=== PATIENT | female | born 1995 | race Caucasian/White ===

== ENCOUNTER 2016-08-05 22:20 | Emergency (ER) | payer MEDICAID ==
--- NOTE | 2016-08-05 22:24 | ED Physician Chart ---
Chief Complaint/HPI - Patient Information Date Seen:: 08/05/16 Time Seen:: 22:24 Chief Complaint:: abdominal pain History of Present Illness:: 21-year-old female with recurrent abdominal pain and vomiting, complains of acute, constant, worsening, severe, 10 out of 10, nonradiating, abdominal pain that started this afternoon. Has some slight associated nausea but no vomiting. Allergies:: Allergies Allergy/AdvReac Type Severity Reaction Status Date / Time No Known Allergies Allergy Verified 02/27/16 10:08 Historian:: Patient Review:: Nurse's Note Reviewed Review of Systems - Review of Systems Other: Complete system review otherwise unremarkable except as noted in HPI. Past Medical History - Past Medical History Past Medical History: Other (cyclic vomiting) Family History: None Social History: Non Smoker, No Alcohol, No Drug Use, Employed Surgical History: None Psychiatricy History: None Medication: None Family Medical History - Family Member Mother History Unknown: Yes Living Status: Still Living Hx Family Cancer: Yes Hx Family Coronary Artery Disease: No Hx Family Congestive Heart Failure: No Hx Family Hypertension: No Physical Exam - Physical Examination Other:: INITIAL VITAL SIGNS: Reviewed by me GENERAL: Alert and interactive. Moderate distress due to pain. HEAD: Head is normocephalic and atraumatic EYES: EOMI. . No scleral icterus. No conjunctival injection ENT: Moist mucous membranes. NECK: Supple. No masses. Full range of motion RESPIRATORY: No tachypnea. Clear breath sounds bilaterally. No wheezing, rales, or rhonchi CV: Regular rate and rhythm. No murmurs, rubs, or gallops ABDOMEN: Soft, non-distended, non-tender. No guarding. No rebound. No masses. EXTREMITIES: No deformity. No cyanosis. No edema. SKIN: Warm and dry. No obvious rashes. NEUROLOGIC: Alert and oriented. Face is symmetric. Speech is normal. Moves all extremities equally. Motor and sensory distally intact. Labs/Radiology/EKG Results - Lab Results Results: Lab Results 08/05/16 08/05/16 08/05/16 Range/Units 22:40 22:40 22:40 WBC 7.9 (4.8-10.8) Th/cmm RBC 5.07 (3.80-5.10) Mil/cmm Hgb 14.9 (11.7-15.5) gm/dL Hct 44.0 (35.0-45.0) % MCV 86.7 (81-100) fl MCH 29.3 (27.0-31.0) pg MCHC Differential 33.7 (28.0-36.0) pg RDW 12.2 (11.5-20.0) % Plt Count 253 (150-400) Th/cmm MPV 9.5 fl Neutrophils % 73.6 (40.0-80.0) % Lymphocytes % 10.8 L (20.0-50.0) % Monocytes % 10.6 H (2.0-10.0) % Eosinophils % 0.5 (0.0-5.0) % Basophils % 4.5 H (0.0-2.0) % Sodium 130 L (136-145) mEq/L Potassium 3.3 L (3.5-5.1) mEq/L Chloride 100 (98-107) mEq/L Carbon Dioxide 23.2 (21.0-31.0) mEq/L Anion Gap 10.1 (7.0-16.0) BUN 9 (7-25) mg/dL Creatinine 1.1 (0.6-1.2) mg/dL Est GFR ( Amer) > 60.0 (>90) ml/min Est GFR (Non-Af Amer) > 60.0 ml/min BUN/Creatinine Ratio 8.2 Glucose 120 H (70-105) mg/dL Calcium 9.8 (8.6-10.3) mg/dL Total Bilirubin 1.3 H (0.3-1.0) mg/dL AST 18 (13-39) U/L ALT 15 (7-52) U/L Alkaline Phosphatase 47 (34-104) U/L Total Protein 7.5 (6.0-8.3) gm/dL Albumin 4.5 (3.7-5.3) gm/dL Globulin 3.0 gm/dL Albumin/Globulin Ratio 1.5 (1.0-1.8) Amylase 56 (29-103) U/L Lipase 9 L (11-82) U/L Urine Test NEGATIVE - Radiology Results Results: CT abdomen and pelvis without contrast preliminary report per radiology NAD ED Septic Shock - . Is Septic Shock (SBP<90, OR Lactate>4 mmol\L) present?: No Reassessment (Disposition) - Reassessment Reassessment:: The patient's blood pressure was elevated (>120/80) but appears stable without evidence of hypertensive emergency or urgency. The patient was counseled about the risks hypertension urged to pursue outpatient monitoring and therapy within a week with her primary care physician. Patient has recurrent abdominal pain with nausea and vomiting. She received IV Toradol, normal saline, Compazine, Decadron. Symptoms improved. CT and labs essentially unremarkable. Some hypokalemia. Recommended testing which foods. Follow-up PCP 1-2 days. Return to ER precautions given. Patient understands and agrees the plan. Reassessment Condition:: Improved - Diagnosis Diagnosis:: Abdominal pain, unspecified Hypokalemia Pre-hypertension - Aftercare/Follow up Instructions Aftercare/Follow-Up Instructions:: Counseled pt regarding lab results/diagnosis & need follow up, Refer to Discharge Instructions - Patient Disposition Discharge/Transfer:: Home Time:: 00:30 Condition at Disposition:: Improved ED Discharge Plan - Patient Disposition Admit/Discharge/Transfer: PT DISCHARGED HOME Condition at Disposition: Improved Instructions: Abdominal Pain, [id number]
[2016-08-05] MEDS ORDERED: Sodium Chloride 0.9% 1,000 ML IV ONE ×2 (22:25→22:27)
[2016-08-05] MEDS ORDERED: Dexamethasone Sodium Phos 4 mg/mL Vial IVP STA (22:26)
[2016-08-05] MEDS ORDERED: Prochlorperazine 5 mg/mL 2mL Vial IVP STA (22:27)
[2016-08-05 22:49] LABS: % BASOPHILS 4.5 % (0.0-2.0); % EOSINOPHILS 0.5 % (0.0-5.0); % LYMPHOCYTES 10.8 % (20.0-50.0); % MONOCYTES 10.6 % (2.0-10.0); % NEUTROPHILS 73.6 % (40.0-80.0); HEMOGLOBIN 14.9 gm/dL (11.7-15.5); MEAN CELL VOLUME 86.7 fl (81-100); MEAN CORPUSCULAR HEMOGLOBIN 29.3 pg (27.0-31.0); MEAN CORPUSCULAR HGB CONC 33.7 pg (28.0-36.0); MEAN PLATELET VOLUME 9.5 fl; NEUTROPHILE ABSOLUTE 5.8 Th/cmm (1.8-8.0); PLATELET COUNT 253 Th/cmm (150-400); RED BLOOD COUNT 5.07 Mil/cmm (3.80-5.10); RED CELL DISTRIBUTION WIDTH 12.2 % (11.5-20.0); WHITE BLOOD COUNT 7.9 Th/cmm (4.8-10.8)
[2016-08-05] MEDS ORDERED: Dexamethasone Sodium Phos 10 mg/mL PF Vial ONE (22:58)
[2016-08-05] MEDS ORDERED: Prochlorperazine 5 mg/mL 2mL Vial ONE (22:59)
[2016-08-05 23:04] LABS: ALB/GLOB RATIO 1.5 (1.0-1.8); ALKALINE PHOSPHATASE 47 U/L (34-104); AMYLASE SERUM 56 U/L (29-103); ANION GAP 10.1 (7.0-16.0); BILIRUBIN,TOTAL 1.3 mg/dL (0.3-1.0); BUN - UREA NITROGEN 9 mg/dL (7-25); BUN/CREATININE RATIO 8.2; CALCIUM SERUM 9.8 mg/dL (8.6-10.3); CARBON DIOXIDE 23.2 mEq/L (21.0-31.0); CHLORIDE 100 mEq/L (98-107); CREATININE - SERUM 1.1 mg/dL (0.6-1.2); GLUCOSE 120 mg/dL (70-105); LIPASE 9 U/L (11-82); POTASSIUM SERUM 3.3 mEq/L (3.5-5.1); SGOT 18 U/L (13-39); SGPT/ALT 15 U/L (7-52); SODIUM SERUM 130 mEq/L (136-145)
[2016-08-05 23:27] LABS: URINE COLOR YELLOW
[2016-08-05 23:28] LABS: URINE BILIRUBIN NEGATIVE (NEGATIVE); URINE BLOOD NEGATIVE (NEGATIVE); URINE GLUCOSE (UA) NEGATIVE (NEGATIVE); URINE KETONE NEGATIVE (NEGATIVE); URINE PH 7.5; URINE PROTEIN TRACE mg/dL (NEGATIVE)
[2016-08-05 23:29] LABS: URINE BACTERIA FEW /hpf (NONE SEEN); URINE EPITHELIAL CELLS FEW /lpf (FEW); URINE RBC 0-1 /hpf (0-5)
--- NOTE | 2016-08-06 11:51 | Diagnostic Imaging Report ---
CT abdomen and pelvis without intravenous contrast Indication: Abdominal pain Comparison: CT abdomen and pelvis on 05/28/2016 Technique: Axial images were obtained from the lung bases to the bilateral proximal femurs without IV contrast. Coronal reconstructions were made. total DLP: 439, CTDI9.3 FINDINGS: The lung bases demonstrate minimal atelectatic changes. Assessment of the solid organs is limited due to lack of IV contrast. No evidence of focal hepatic lesions. No radiopaque gallstones identified. No focal splenic lesions. No focal pancreatic lesions. Limited evaluation of adrenal gland demonstrates no evidence of focal lesions. There may be punctate 1 mm right renal calculus (image 29, series 2). No hydronephrosis. Trace free fluid is seen within the pelvis. Moderate stool is seen throughout the colon without evidence of obstruction. The appendix is unremarkable. Degenerative changes of the SI joints are noted. IMPRESSION: No evidence of bowel obstruction. No evidence of acute appendicitis. Trace free fluid in the pelvis, nonspecific Questionable 1 mm right renal stone. No hydronephrosis.
== END 2016-08-06 00:33 | disposition home or self-care (01) ==
LOC: ER 22:20
DX: R10.9 Unspecified abdominal pain (principal); E87.6 Hypokalemia
CPT/HCPCS: 74176; 36415; 85025; 81001; 82150; 81025; 83690; 80053; 99285; 96374; 96375; J1885; J2405; J0780; J7070

== ENCOUNTER 2016-12-02 11:42 | Emergency (ER) | payer MEDICAID ==
--- NOTE | 2016-12-02 12:06 | ED Physician Chart ---
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; Allergies:: Allergies Allergy/AdvReac Type Severity Reaction Status Date / Time mushroom Allergy Verified 12/02/16 11:51 Vitals:: Vital Signs - 8 hr 12/02/16 11:51 Temp 98.4 F HR 92 RR 15 BP 135/63 O2 Sat % 100 Historian:: Patient Review:: Nurse's Note Reviewed Review of Systems - Review of Systems General/Constitutional: Fever, Chills, No weight loss, No weakness, No diaphoresis, No edema, No loss of appetite Skin: No skin lesions, No rash, No bruising Head: No headache, No light-headedness Eyes: No loss of vision, No pain, No diplopia ENT: No earache, Nasal drainage, Sore throat, No tinnitus Neck: No neck pain, No swelling, No thyromegaly, No stiffness, No mass noted Cardio Vascular: No chest pain, No palpitations, No PND, No orthopnea, No edema Pulmonary: No SOB, Cough, No sputum, No wheezing GI: Nausea, Vomiting, Diarrhea, No pain, No melena, No hematochezia, Constipation, No hematemesis G/U: No dysuria, No frequency, No hematuria Surgical Supplies Sterilizer: No vaginal discharge, No abnormal vaginal bleed, No contraction Musculoskeletal: No bone or joint pain, No back pain, No muscle pain Endocrine: No polyuria, No polydipsia Psychiatric: No prior psych history, No depression, No anxiety, No suicidal ideation Hematopoietic: No bruising, No lymphadenopathy Allergic/Immuno: No urticaria, No angioedema Neurological: No syncope, No focal symptoms, No weakness, No paresthesia, No headache, No seizure, No dizziness, No confusion, No vertigo Past Medical History - Past Medical History Obtainable: Yes Past Medical History: No significant medical hx Family History: HTN Social History: Non Smoker, No Alcohol, No Drug Use, Single, Employed Surgical History: None Psychiatricy History: None Medication: Reviewed Family Medical History - Family Member Mother History Unknown: Yes Living Status: Still Living Hx Family Cancer: Yes Hx Family Coronary Artery Disease: No Hx Family Congestive Heart Failure: No Hx Family Hypertension: No Physical Exam - Physical Examination General/Constitutional: Awake, Well-developed, well-nourished, Alert, No distress, GCS 15, Non-toxic appearing, Ambulatory Head: Atraumatic Eyes: Lids, conjuctiva normal, PERRL, EOMI Skin: Nl inspection, No rash, No skin lesions, No ecchymosis, Well hydrated, No lymphadenopathy ENMT: External ears, nose nl, Nasal exam nl, Lips, teeth, gums nl, Tonsils nl Other ENMT comments:: Pharynx: Injected; no exudates; no absceeses; no FBs; no obstruction Neck: Nontender, Full ROM w/o pain, No JVD, No nuchal rigidity, No bruit, No mass, No stridor Respiratory: Nl effort/Exclusion, Clear to Auscultation, No Wheeze/Rhonchi/Rales Cardio Vascular: RRR, No murmur, gallop, rubs, NL S1 S2 GI: No tenderness/rebounding/guarding, No organomegaly, No hernia, Normal BS's, Nondistended, No mass/bruits, No McBurney tenderness : No CVA tenderness Extremities: No tenderness or effusion, Full ROM, normal strength in all extremities, No edema, Normal digits & nails Neuro/Psych: Alert/oriented, DTR's symmetric, Normal sensory exam, Normal motor strength, Judgement/insight normal, Mood normal, Normal gait, No focal deficits Misc: normal gait, Normal back, No paraspinal tenderness ED Septic Shock - . Is Septic Shock (SBP<90, OR Lactate>4 mmol\L) present?: No - <6hrs of presentation: Vital Signs: Vital Signs - 8 hr 12/02/16 11:51 Temp 98.4 F HR 92 RR 15 BP 135/63 O2 Sat % 100 Reassessment (Disposition) - Reassessment Reassessment Condition:: Improved - Diagnosis Diagnosis:: Soer Throat; Cough/Congestion; Pharyngitis; Fever; Bronchitis; URI - Aftercare/Follow up Instructions Aftercare/Follow-Up Instructions:: Counseled pt regarding lab results/diagnosis & need follow up, Refer to Discharge Instructions, Counseled pt & family regarding lab results/diagnosis & need follow up Medication Prescribed:: Rx: Amoxicillin 500mg po tid x 10 days; Phenergan Cough Syrup/ Tylenol/Cool Mist Vaporizer: Take as prescribed; Encourage Fluids - Patient Disposition Discharge/Transfer:: Home Condition at Disposition:: Stable, Improved (RTER prn if existing s/s reoccur and/or get worse and/or any other new s/s occur; ACIs given for all above Dx; Refer to ENT Specialist/Strip Presser/Book Cutter ZAN; F/U with PMD in one day or prn; RTER prn if concerned) ED Discharge Plan - Patient Disposition Prescriptions: Amoxicillin 500 mg PO TID #30 ctb Promethazine HCl - Dm [Phenergan Dm] 5 ml PO QID PRN #1 bottle PRN Reason: Cough Instructions: Bronchitis, [id number] Accepting Physician: Mathieu Baker [Primary Care Provider] - 1-3 Days
== END 2016-12-02 12:05 | disposition home or self-care (01) ==
LOC: ER 11:42
DX: J02.9 Acute pharyngitis, unspecified (principal); J40 Bronchitis, not specified as acute or chronic; J06.9 Acute upper respiratory infection, unspecified; Z91.02 Food additives allergy status
CPT/HCPCS: Z7502

== ENCOUNTER 2016-12-06 16:01 | Inpatient (IN) | payer MEDICAID ==
[2016-12-06] MEDS ORDERED: Pantoprazole 80 MG in Sodium Chloride 0.9% 100 ML IV ONE (16:20)
--- NOTE | 2016-12-06 16:27 | ED Physician Chart ---
Chief Complaint/HPI - Patient Information Date Seen:: 12/06/16 Time Seen:: 16:19 Chief Complaint:: ABDOMINAL PAIN AND COUGH History of Present Illness:: THIS IS A 21 YO FEMALE WITH SEVERAL DAYS OF CHEST CONGESTION AND COUGH ASSOCIATED WITH UPPER ABDOMINAL PAIN. SHE DENIES NAUSEA AND VOMITING. SHE IS CONCERNED ABOUT HAVING DIARRHEA AND THINKS SHE HAS BLOOD IN HER URINE. SHE HAS BEEN TAKING THE AMOXICILLIN AND THE COUGH SYRUP BUT HAS NOT GOTTEN BETTER. SHE HAS NOT HAD ASTHMA OF BRONCHITIS IN THE PAST. Allergies:: Allergies Allergy/AdvReac Type Severity Reaction Status Date / Time mushroom Allergy Verified 12/02/16 11:51 Vitals:: Vital Signs - 8 hr 12/06/16 16:09 Temp 97.8 F HR 109 RR 16 BP 107/78 O2 Sat % 100 Historian:: Patient Review:: Nurse's Note Reviewed Review of Systems - Review of Systems General/Constitutional: No fever, No chills, Weakness, No weakness, No diaphoresis, No edema, No loss of appetite Skin: No skin lesions, No rash, No bruising Head: Headache, No light-headedness Eyes: No loss of vision, No pain, No diplopia ENT: No earache, No nasal drainage, No sore throat, No tinnitus Neck: No neck pain, No swelling, No thyromegaly, No stiffness, No mass noted Cardio Vascular: No chest pain, No palpitations, No PND, No orthopnea, No edema Pulmonary: No SOB, Cough, No sputum, No wheezing GI: No nausea, No vomiting, Diarrhea, No pain, No melena, No hematochezia, No constipation, No hematemesis G/U: No dysuria, No frequency, No hematuria Musculoskeletal: No bone or joint pain, No back pain, No muscle pain Endocrine: No polyuria, No polydipsia Psychiatric: No prior psych history, No depression, Anxiety, No suicidal ideation Hematopoietic: No bruising, No lymphadenopathy Allergic/Immuno: No urticaria, No angioedema Neurological: No syncope, No focal symptoms, No weakness, No paresthesia, No headache, No seizure, No dizziness, No confusion, No vertigo Past Medical History - Past Medical History Obtainable: Yes Past Medical History: No significant medical hx Family History: HTN Social History: Non Smoker, No Alcohol, No Drug Use Surgical History: None Psychiatricy History: None Medication: Reviewed Family Medical History - Family Member Mother History Unknown: Yes Living Status: Still Living Hx Family Cancer: Yes Hx Family Coronary Artery Disease: No Hx Family Congestive Heart Failure: No Hx Family Hypertension: No Physical Exam - Physical Examination General/Constitutional: Awake, Well-developed, well-nourished, Alert, No distress, GCS 15, Non-toxic appearing, Ambulatory Head: Atraumatic Eyes: Lids, conjuctiva normal, PERRL, EOMI Skin: Nl inspection, No rash, No skin lesions, No ecchymosis, Well hydrated, No lymphadenopathy ENMT: External ears, nose nl, Nasal exam nl, Lips, teeth, gums nl Neck: Nontender, Full ROM w/o pain, No JVD, No nuchal rigidity, No bruit, No mass, No stridor Respiratory: Nl effort/Exclusion, Clear to Auscultation, No Wheeze/Rhonchi/Rales Cardio Vascular: RRR, No murmur, gallop, rubs, NL S1 S2 GI: No tenderness/rebounding/guarding, No organomegaly, No hernia, Normal BS's, Nondistended, No mass/bruits, No McBurney tenderness Other GI comments:: THERE IS SLIGHT TENDERNESS OF THE EPIGASTRIC AREA : No CVA tenderness Extremities: No tenderness or effusion, Full ROM, normal strength in all extremities, No edema, Normal digits & nails Neuro/Psych: Alert/oriented, DTR's symmetric, Normal sensory exam, Normal motor strength, Judgement/insight normal, Mood normal, Normal gait, No focal deficits Misc: normal gait, Normal back, No paraspinal tenderness Labs/Radiology/EKG Results - Lab Results Results: Abnormal Lab Results 12/06/16 12/06/16 12/06/16 16:22 16:22 16:22 WBC 11.9 H D RBC 5.27 H Hgb 15.8 H Hct 46.9 H MCV 89.0 MCH 30.0 MCHC Differential 33.7 RDW 12.1 Plt Count 275 MPV 9.0 Neutrophils % 75.6 Lymphocytes % 17.1 L Monocytes % 4.9 Eosinophils % 1.4 Basophils % 1.0 Sodium 132 L Potassium 3.2 L Chloride 102 Carbon Dioxide 22.7 Anion Gap 10.5 BUN 8 Creatinine 0.9 Est GFR ( Amer) > 60.0 Est GFR (Non-Af Amer) > 60.0 BUN/Creatinine Ratio 8.9 Glucose 99 Hemoglobin A1c % Calcium 10.1 Total Bilirubin 1.1 H AST 34 ALT 52 Alkaline Phosphatase 49 Troponin I < 0.01 L Total Protein 7.5 Albumin 4.5 Globulin 3.0 Albumin/Globulin Ratio 1.5 Amylase TSH Serum , Qual Urine Source Urine Color Urine Clarity Urine pH Ur Specific [place] Urine Protein Urine Glucose (UA) Urine Ketones Urine Blood Urine Nitrate Urine Bilirubin Urine Urobilinogen Ur Leukocyte Esterase Urine RBC Urine WBC Ur Epithelial Cells Urine Bacteria Urine Test 12/06/16 12/06/16 12/06/16 16:22 16:22 16:22 WBC RBC Hgb Hct MCV MCH MCHC Differential RDW Plt Count MPV Neutrophils % Lymphocytes % Monocytes % Eosinophils % Basophils % Sodium Potassium Chloride Carbon Dioxide Anion Gap BUN Creatinine Est GFR ( Amer) Est GFR (Non-Af Amer) BUN/Creatinine Ratio Glucose Hemoglobin A1c % 5.1 Calcium Total Bilirubin AST ALT Alkaline Phosphatase Troponin I Total Protein Albumin Globulin Albumin/Globulin Ratio Amylase 59 TSH 1.76 Serum , Qual Urine Source Urine Color Urine Clarity Urine pH Ur Specific [place] Urine Protein Urine Glucose (UA) Urine Ketones Urine Blood Urine Nitrate Urine Bilirubin Urine Urobilinogen Ur Leukocyte Esterase Urine RBC Urine WBC Ur Epithelial Cells Urine Bacteria Urine Test 12/06/16 12/06/16 12/06/16 16:22 17:18 17:18 WBC RBC Hgb Hct MCV MCH MCHC Differential RDW Plt Count MPV Neutrophils % Lymphocytes % Monocytes % Eosinophils % Basophils % Sodium Potassium Chloride Carbon Dioxide Anion Gap BUN Creatinine Est GFR ( Amer) Est GFR (Non-Af Amer) BUN/Creatinine Ratio Glucose Hemoglobin A1c % Calcium Total Bilirubin AST ALT Alkaline Phosphatase Troponin I Total Protein Albumin Globulin Albumin/Globulin Ratio Amylase TSH Serum , Qual NEGATIVE Urine Source CLEAN C Urine Color RED Urine Clarity TURBID H Urine pH >=9.0 Ur Specific [place] 1.015 Urine Protein >300 H Urine Glucose (UA) NEGATIVE Urine Ketones 15 H Urine Blood LARGE H Urine Nitrate NEGATIVE Urine Bilirubin LARGE H Urine Urobilinogen 0.2 Ur Leukocyte Esterase TRACE H Urine RBC >100 H Urine WBC 2-5 Ur Epithelial Cells NONE SEEN Urine Bacteria MANY Urine Test NEGATIVE - Radiology Results Results: CT SCAN OF THE ABDOMEN AND PELVIS = COLITIS Assessment - Assessment General Assessment: THIS PATIENT HAS AN ELEVATED WHITE COUNT, DIARRHEA AND A CT SCAN OF A POSITIVE FOR COLITIS. ED Septic Shock - . Is Septic Shock (SBP<90, OR Lactate>4 mmol\L) present?: No - <6hrs of presentation: Vital Signs: Vital Signs - 8 hr 12/06/16 16:09 Temp 97.8 F HR 109 RR 16 BP 107/78 O2 Sat % 100 Reassessment (Disposition) - Reassessment Reassessment Condition:: Improved - Diagnosis Diagnosis:: COLITIS - Patient Disposition Discharge/Transfer:: Acute Care w/in this hosp Admitting Medical Physician:: Mathieu Baker Condition at Disposition:: Improved ED Discharge Plan - Patient Disposition Admit/Discharge/Transfer: Acute Care w/in this hosp Condition at Disposition: Improved
[2016-12-06 16:30] LABS: % EOSINOPHILS 1.4 % (0.0-5.0); % LYMPHOCYTES 17.1 % (20.0-50.0); % MONOCYTES 4.9 % (2.0-10.0); % NEUTROPHILS 75.6 % (40.0-80.0); HEMATOCRIT 46.9 % (35.0-45.0); HEMOGLOBIN 15.8 gm/dL (11.7-15.5); MEAN CORPUSCULAR HGB CONC 33.7 pg (28.0-36.0); PLATELET COUNT 275 Th/cmm (150-400); RED BLOOD COUNT 5.27 Mil/cmm (3.80-5.10); RED CELL DISTRIBUTION WIDTH 12.1 % (11.5-20.0)
[2016-12-06 16:31] LABS: WHITE BLOOD COUNT 11.9 Th/cmm (4.8-10.8)
[2016-12-06 16:46] LABS: ALB/GLOB RATIO 1.5 (1.0-1.8); ALKALINE PHOSPHATASE 49 U/L (34-104); ANION GAP 10.5 (7.0-16.0); BILIRUBIN,TOTAL 1.1 mg/dL (0.3-1.0); BUN - UREA NITROGEN 8 mg/dL (7-25); BUN/CREATININE RATIO 8.9; CALCIUM SERUM 10.1 mg/dL (8.6-10.3); CARBON DIOXIDE 22.7 mEq/L (21.0-31.0); CHLORIDE 102 mEq/L (98-107); CREATININE - SERUM 0.9 mg/dL (0.6-1.2); GLUCOSE 99 mg/dL (70-105); POTASSIUM SERUM 3.2 mEq/L (3.5-5.1); SGOT 34 U/L (13-39); SGPT/ALT 52 U/L (7-52); SODIUM SERUM 132 mEq/L (136-145)
[2016-12-06] MEDS ORDERED: Sodium Chloride 0.45% 1,000 ML IV ONE (16:50)
[2016-12-06] MEDS ORDERED: KCL 20mEq/100mL Premix 20 MEQ/100 ML PIGGYBACK IV ONE ×2 (17:36→17:37)
[2016-12-06 17:42] LABS: URINE BILIRUBIN LARGE (NEGATIVE); URINE COLOR RED; URINE GLUCOSE (UA) NEGATIVE (NEGATIVE)
[2016-12-06 17:43] LABS: URINE BLOOD LARGE (NEGATIVE); URINE KETONE 15 mg/dL (NEGATIVE); URINE PH >=9.0
[2016-12-06 17:44] LABS: URINE PROTEIN >300 mg/dL (NEGATIVE); URINE UROBILINOGEN 0.2 E.U./dL (0.2 - 1.0)
[2016-12-06 17:47] LABS: URINE BACTERIA MANY /hpf (NONE SEEN); URINE EPITHELIAL CELLS NONE SEEN /lpf (FEW); URINE RBC >100 /hpf (0-5)
[2016-12-06] MEDS ORDERED: IOHEXOL 300MG/ML 100 ML VIAL ONE (17:49)
[2016-12-06 20:52] LABS: AMPHETAMINE URINE NEGATIVE (NEGATIVE); BARBITURATES URINE NEGATIVE (NEGATIVE); METHADONE URINE NEGATIVE (NEGATIVE)
--- NOTE | 2016-12-06 22:36 | Admit Criteria Form ---
Admit Criteria Forms - Admit Criteria Diagnosis: ABDOMINAL PAIN Clinical Indications for Admission to Inpatient Care (Place 'X' for any and all applicable criteria): Admission is indicated for ANY ONE of the following(1)(2)(3)(4)(5): [ X]I. Inpatient admission required rather than observation care (Also use Abdominal Pain: Observation Care, as appropriate) because of ANY ONE of the following: [ ]a) Severe pain requiring acute inpatient management [ X]b) Identification of etiology/finding that requires inpatient care (eg, aortic dissection, free air) [ ]c) Absent bowel sounds with complete ileus(6) [ ]d) Suspected toxic megacolon [ ]e) Severe electrolyte abnormalities requiring inpatient care [ ]f) High fever or infection requiring inpatient admission as indicated by ANY ONE of following(7)(8): [ ] i) Appropriate outpatient or observational care antimicrobial treatment unavailable, not effective, or not feasible [ ] ii) Documented bacteremia [ ] iii) Temperature > 104.9 degrees F (oral) [ ] iv) T >103.1 F (oral) or < 96.8 F(rectal) that does not respond to all emergency treatment measures [ ]g) Signs of intestinal obstruction [B] [ ]h) Hemodynamic instability [ ]i) IV fluid to replace significant ongoing losses (greater than 3 L/m2 per day) (12)(13) [ ]j) Percutaneous or open drainage (eg, abscess, biliary tract ) procedures [ ]k) Parenteral nutrition regimen that must be implemented on inpatient basis [ ]l) Other condition,treatment or monitoring requiring inpatient admission. [ ]II. Peritoneal signs present [ ]III. Surgery needed that cannot be performed on an ambulatory basis. [ ]IV. Evaluation requires patient to not eat or drink for extended period ( eg, more than 24 hours). [ ]V. Contraindications and/or Inappropriate clinical situations for Observational Care in patients with abdominal pain, when ANY ONE of the following is required: [ ]a) Thorough evaluation is required to prevent catastrophic events due to delays in diagnosing (e.g.Mesenteric ischemia) 1,3 [ ]b) Patient with severe pathology or with chronic symptoms unlikely to improve in the ED stay (3) [ ]. General contraindications and/or Inappropriate clinical situations for Observational Care in patients with abdominal pain, when ANY ONE of the following is required: [ ]a) Prediction of prolongation of LOS based on ANY ONE of the following may be considered as a contraindication for observational care 2, 3, 4, 5, 6, 7, 8, 9, 10, 11 [ ]i) Age > 65 yrs. [ ]ii) Patient arriving by ambulance [ ]iii) Patient with high acuity [ ]iv) Patient requiring vital sign monitoring [ ]v) Patient on IV medication [ ]b) Systolic blood pressures 180mmHg 3,12 [ ]c) Patient with altered mental status including delirium and other alteration of consciousness, (3) [ ]d) Patient whose discharge disposition will be to a [facility] home or rehabilitation home should not be managed in Emergency Department Observation Unit. CMS rule requires 3 days hospital stay before such placement.3,13 [ ]e) Patient with failure to thrive due to broad array of etiologies 3,16,17 [ ]f) Inability to ambulate 3,14 Extended stay beyond goal length of stay may be needed for(2)(3): [ ]a) Persistent abdominal pain with suspected intra-abdominal process [ ]b) Diagnosed condition requiring continued stay (e.g., pancreatitis, complicated diverticulitis) [ ]c) Surgery (e.g., colectomy) The original [facility] content created by [email or web address] has been revised. The portions of the content which have been revised are identified through the use of italic text or in bold, and [facility] has neither reviewed nor approved the modified material.All other unmodified content is copyright [facility]. Please see references footnoted in the original [facility] edition 2016 Admit Criteria Met?: Yes
[2016-12-07] MEDS ORDERED: metroNIDAZOLE 500mg/NS 100mL 500 MG/100 ML BAG IV SCH (04:00)
[2016-12-07] MEDS: Sodium Chloride 0.45% 1,000 ML IV SCH ×2 (04:13→11:39)
[2016-12-07] MEDS ORDERED: Hydrocodone/APAP 10 mg/325 mg Tab PO PRN (04:41)
[2016-12-07 05:45] LABS: % BASOPHILS 0.2 % (0.0-2.0); % EOSINOPHILS 0.1 % (0.0-5.0); % LYMPHOCYTES 11.4 % (20.0-50.0); % MONOCYTES 1.5 % (2.0-10.0); % NEUTROPHILS 86.8 % (40.0-80.0); HEMOGLOBIN 14.1 gm/dL (11.7-15.5); MEAN CELL VOLUME 89.7 fl (81-100); MEAN CORPUSCULAR HEMOGLOBIN 29.9 pg (27.0-31.0); MEAN CORPUSCULAR HGB CONC 33.4 pg (28.0-36.0); NEUTROPHILE ABSOLUTE 5.2 Th/cmm (1.8-8.0); PLATELET COUNT 255 Th/cmm (150-400); RED BLOOD COUNT 4.71 Mil/cmm (3.80-5.10); RED CELL DISTRIBUTION WIDTH 12.2 % (11.5-20.0)
[2016-12-07 05:56] LABS: HEMATOCRIT 42.2 % (35.0-45.0)
[2016-12-07 06:01] LABS: ALB/GLOB RATIO 1.5 (1.0-1.8); ALKALINE PHOSPHATASE 44 U/L (34-104); ANION GAP 9.6 (7.0-16.0); BILIRUBIN,TOTAL 1.1 mg/dL (0.3-1.0); BUN - UREA NITROGEN 8 mg/dL (7-25); CALCIUM SERUM 9.6 mg/dL (8.6-10.3); CHLORIDE 105 mEq/L (98-107); CREATININE - SERUM 0.8 mg/dL (0.6-1.2); GLUCOSE 148 mg/dL (70-105); POTASSIUM SERUM 3.6 mEq/L (3.5-5.1); SGOT 42 U/L (13-39); SGPT/ALT 65 U/L (7-52); SODIUM SERUM 133 mEq/L (136-145)
[2016-12-07] MEDS: Morphine Sulfate 2 mg/mL 1mL Syr IVP PRN ×4 (08:40→20:42)
--- NOTE | 2016-12-07 10:32 | Diagnostic Imaging Report ---
CT abdomen and pelvis with intravenous contrast Indication: Recurrent Abdominal pain Comparison: CT abdomen and pelvis on 06/04/2017, Technique: Axial images were obtained from the lung bases to the bilateral proximal femurs with IV contrast. Coronal reconstructions were made. total DLP: 343, CTDI7.6 FINDINGS: Hypoventilatory and atelectatic changes of the lungs are noted. Exam is limited due to lack of oral contrast. No evidence of focal hepatic, splenic, pancreatic, or adrenal lesions. No evidence of hydronephrosis or focal renal lesions. Small amount of free fluid is seen within the pelvis. There is mild bowel wall prominence and enhancement of the sigmoid colon and rectum. The large bowel is collapsed limiting its evaluation. No evidence of acute appendicitis. Small amount of free fluid is seen within the pelvis. The osseous structures demonstrate no acute abnormalities. IMPRESSION: No evidence of acute appendicitis. Mild bowel wall thickening and enhancement of the sigmoid colon and rectum. Findings may be due to underlying inflammatory/infectious process. Mild should be considered. Small amount of free fluid is also seen within the pelvis. No evidence of hydronephrosis.
--- NOTE | 2016-12-07 16:00 | History and Physical ---
History of Present Illness - HPI HPI: severe abdominal pain, diarrhea and vomiting, bronchitis Vital Signs: Last Vital Signs Temp 97.8 F 12/07/16 08:00 Pulse 66 12/07/16 08:00 Resp 18 12/07/16 08:00 BP 120/70 12/07/16 08:00 Pulse Ox 100 12/06/16 19:56 Weight (lbs): 145 kg Family Medical History - Family Member Mother History Unknown: Yes Name:: Concepcion Stuart Age: 45 Living Status: Still Living Hx Family Cancer: Yes Hx Family Coronary Artery Disease: No Hx Family Congestive Heart Failure: No Hx Family Hypertension: No Hx Family Diabetes: Yes Father Name:: Sagar Stuart Age: 50 Living Status: Still Living Hx Family Cancer: Yes (Melanoma, plus others unknown) Other Medical History: Swollen discs in backs, chest pain - Medications Home Medications: Home Medication Medication Instructions Recorded Type Alprazolam [Alprazolam Odt] 0.25 mg PO BID PRN 12/06/16 History Amoxicillin [Amoxil] 500 mg PO TID 12/06/16 [address] [facility] Non-Aspirin 500 mg PO QID PRN 12/06/16 History Ibuprofen 800 mg PO TID 12/06/16 History Norgestimate-Ethinyl Estradiol 1 tab PO DAILY 12/06/16 History [Tri-Estarylla 35 Mcg-0.25 mg] Ondansetron [Zofran ODT] 4 mg PO DAILY 12/06/16 History Pantoprazole Sodium 40 mg PO DAILY 12/06/16 History Promethazine [Phenergan] 6.25 mg PO QID PRN 12/06/16 History - Allergies Allergies/Adverse Reactions: Allergies Allergy/AdvReac Type Severity Reaction Status Date / Time mushroom Allergy Verified 12/02/16 11:51 - Lab Results All Lab Results last 24 hours: Laboratory Last Values WBC 6.0 Th/cmm (4.8-10.8) D 12/07/16 05:25 RBC 4.71 Mil/cmm (3.80-5.10) 12/07/16 05:25 Hgb 14.1 gm/dL (11.7-15.5) 12/07/16 05:25 Hct 42.2 % (35.0-45.0) D 12/07/16 05:25 MCV 89.7 fl (81-100) 12/07/16 05:25 MCH 29.9 pg (27.0-31.0) 12/07/16 05:25 MCHC Differential 33.4 pg (28.0-36.0) 12/07/16 05:25 RDW 12.2 % (11.5-20.0) 12/07/16 05:25 Plt Count 255 Th/cmm (150-400) 12/07/16 05:25 MPV 9.0 fl 12/07/16 05:25 Neutrophils % 86.8 % (40.0-80.0) H 12/07/16 05:25 Lymphocytes % 11.4 % (20.0-50.0) L 12/07/16 05:25 Monocytes % 1.5 % (2.0-10.0) L 12/07/16 05:25 Eosinophils % 0.1 % (0.0-5.0) 12/07/16 05:25 Basophils % 0.2 % (0.0-2.0) 12/07/16 05:25 Sodium 133 mEq/L (136-145) L 12/07/16 05:25 Potassium 3.6 mEq/L (3.5-5.1) 12/07/16 05:25 Chloride 105 mEq/L (98-107) 12/07/16 05:25 Carbon Dioxide 22.0 mEq/L (21.0-31.0) 12/07/16 05:25 Anion Gap 9.6 (7.0-16.0) 12/07/16 05:25 BUN 8 mg/dL (7-25) 12/07/16 05:25 Creatinine 0.8 mg/dL (0.6-1.2) 12/07/16 05:25 Est GFR ( Amer) > 60.0 ml/min (>90) 12/07/16 05:25 Est GFR (Non-Af Amer) > 60.0 ml/min 12/07/16 05:25 BUN/Creatinine Ratio 10.0 12/07/16 05:25 Glucose 148 mg/dL (70-105) H 12/07/16 05:25 Hemoglobin A1c % 5.1 % (4.0-6.0) 12/06/16 16:22 Calcium 9.6 mg/dL (8.6-10.3) 12/07/16 05:25 Total Bilirubin 1.1 mg/dL (0.3-1.0) H 12/07/16 05:25 AST 42 U/L (13-39) H 12/07/16 05:25 ALT 65 U/L (7-52) H 12/07/16 05:25 Alkaline Phosphatase 44 U/L (34-104) 12/07/16 05:25 Troponin I < 0.01 ng/mL (0.01-0.05) L 12/06/16 16:22 C-Reactive Protein < 0.2 mg/dL (0.0-0.9) 12/07/16 05:25 Total Protein 7.0 gm/dL (6.0-8.3) 12/07/16 05:25 Albumin 4.2 gm/dL (3.7-5.3) 12/07/16 05:25 Globulin 2.8 gm/dL 12/07/16 05:25 Albumin/Globulin Ratio 1.5 (1.0-1.8) 12/07/16 05:25 Amylase 59 U/L (29-103) 12/06/16 16:22 TSH 1.76 uIU/ml (0.34-5.60) 12/06/16 16:22 Serum , Qual NEGATIVE (NEGATIVE) 12/06/16 16:22 Urine Source CLEAN C 12/06/16 17:18 Urine Color RED 12/06/16 17:18 Urine Clarity TURBID (CLEAR) H 12/06/16 17:18 Urine pH >=9.0 12/06/16 17:18 Ur Specific [place] 1.015 (1.005-1.030) 12/06/16 17:18 Urine Protein >300 mg/dL (NEGATIVE) H 12/06/16 17:18 Urine Glucose (UA) NEGATIVE mg/dL (NEGATIVE) 12/06/16 17:18 Urine Ketones 15 mg/dL (NEGATIVE) H 12/06/16 17:18 Urine Blood LARGE (NEGATIVE) H 12/06/16 17:18 Urine Nitrate NEGATIVE (NEGATIVE) 12/06/16 17:18 Urine Bilirubin LARGE (NEGATIVE) H 12/06/16 17:18 Urine Urobilinogen 0.2 E.U./dL (0.2 - 1.0) 12/06/16 17:18 Ur Leukocyte Esterase TRACE (NEGATIVE) H 12/06/16 17:18 Urine RBC >100 /hpf (0-5) H 12/06/16 17:18 Urine WBC 2-5 /hpf (0-5) 12/06/16 17:18 Ur Epithelial Cells NONE SEEN /lpf (FEW) 12/06/16 17:18 Urine Bacteria MANY /hpf (NONE SEEN) 12/06/16 17:18 Urine Test NEGATIVE 12/06/16 17:18 Urine Opiates Screen NEGATIVE (NEGATIVE) 12/06/16 19:30 Urine Methadone Screen NEGATIVE (NEGATIVE) 12/06/16 19:30 Ur Barbiturates Screen NEGATIVE (NEGATIVE) 12/06/16 19:30 Ur Tricyclics Screen NEGATIVE (NEGATIVE) 12/06/16 19:30 Ur Phencyclidine Scrn NEGATIVE (NEGATIVE) 12/06/16 19:30 Amphetamines Screen NEGATIVE (NEGATIVE) 12/06/16 19:30 U Methamphetamines Scrn NEGATIVE (NEGATIVE) 12/06/16 19:30 U Benzodiazepines Scrn POSITIVE (NEGATIVE) H 12/06/16 19:30 U Cocaine Metab Screen NEGATIVE (NEGATIVE) 12/06/16 19:30 U Cannabinoids Screen NEGATIVE (NEGATIVE) 12/06/16 19:30 Laboratory Results - last 24 hr 12/07/16 12/07/16 12/07/16 05:25 05:25 05:25 WBC 6.0 D RBC 4.71 Hgb 14.1 Hct 42.2 D MCV 89.7 MCH 29.9 MCHC Differential 33.4 RDW 12.2 Plt Count 255 MPV 9.0 Neutrophils % 86.8 H Lymphocytes % 11.4 L Monocytes % 1.5 L Eosinophils % 0.1 Basophils % 0.2 Sodium 133 L Potassium 3.6 Chloride 105 Carbon Dioxide 22.0 Anion Gap 9.6 BUN 8 Creatinine 0.8 Est GFR ( Amer) > 60.0 Est GFR (Non-Af Amer) > 60.0 BUN/Creatinine Ratio 10.0 Glucose 148 H Calcium 9.6 Total Bilirubin 1.1 H AST 42 H ALT 65 H Alkaline Phosphatase 44 C-Reactive Protein < 0.2 Total Protein 7.0 Albumin 4.2 Globulin 2.8 Albumin/Globulin Ratio 1.5 - Assessment Assessment: Current Active Problems Problem Status Onset LOWER ABDOMINAL PAIN WITH BLOODY DIARRHE Acute
[2016-12-07] MEDS ORDERED: Albuterol Nebulizer 2.5mg/3mL HHN PRN (17:08)
[2016-12-07] MEDS: Budesonide 0.5 Mg/2 mL Ud HHN SCH ×2 (19:20→19:21)
[2016-12-07] MEDS: cefTRIAXone 1 GM in Sodium Chloride 0.9% 50 ML IV SCH (20:43)
[2016-12-07] MEDS: metroNIDAZOLE 500mg/NS 100mL 500 MG/100 ML BAG IV SCH (21:34)
[2016-12-08] MEDS: Morphine Sulfate 2 mg/mL 1mL Syr IVP PRN ×7 (00:31→23:04)
[2016-12-08] MEDS: Sodium Chloride 0.45% 1,000 ML IV SCH ×2 (03:38→21:28)
[2016-12-08] MEDS: metroNIDAZOLE 500mg/NS 100mL 500 MG/100 ML BAG IV SCH ×3 (05:09→21:28)
[2016-12-08 05:35] LABS: % BASOPHILS 0.2 % (0.0-2.0); % EOSINOPHILS 0.2 % (0.0-5.0); % LYMPHOCYTES 10.7 % (20.0-50.0); % MONOCYTES 7.7 % (2.0-10.0); % NEUTROPHILS 81.2 % (40.0-80.0); HEMATOCRIT 39.7 % (35.0-45.0); HEMOGLOBIN 13.5 gm/dL (11.7-15.5); MEAN CELL VOLUME 88.6 fl (81-100); MEAN CORPUSCULAR HEMOGLOBIN 30.1 pg (27.0-31.0); MEAN CORPUSCULAR HGB CONC 33.9 pg (28.0-36.0); MEAN PLATELET VOLUME 9.7 fl; NEUTROPHILE ABSOLUTE 11.8 Th/cmm (1.8-8.0); PLATELET COUNT 287 Th/cmm (150-400); RED BLOOD COUNT 4.48 Mil/cmm (3.80-5.10); RED CELL DISTRIBUTION WIDTH 12.2 % (11.5-20.0)
[2016-12-08 06:02] LABS: ALB/GLOB RATIO 1.5 (1.0-1.8); ALKALINE PHOSPHATASE 36 U/L (34-104); ANION GAP 8.2 (7.0-16.0); BILIRUBIN,TOTAL 1.3 mg/dL (0.3-1.0); BUN - UREA NITROGEN 8 mg/dL (7-25); CARBON DIOXIDE 25.5 mEq/L (21.0-31.0); CHLORIDE 104 mEq/L (98-107); CREATININE - SERUM 0.8 mg/dL (0.6-1.2); GLUCOSE 101 mg/dL (70-105); LIPASE 4 U/L (11-82); POTASSIUM SERUM 3.7 mEq/L (3.5-5.1); SGOT 48 U/L (13-39); SGPT/ALT 86 U/L (7-52); SODIUM SERUM 134 mEq/L (136-145)
[2016-12-08 06:09] LABS: WHITE BLOOD COUNT 14.4 Th/cmm (4.8-10.8)
[2016-12-08] MEDS: Albuterol Nebulizer 2.5mg/3mL HHN SCH ×5 (07:45→23:04)
[2016-12-08] MEDS: Budesonide 0.5 Mg/2 mL Ud HHN SCH ×2 (07:57→19:24)
[2016-12-08] MEDS: cefTRIAXone 1 GM in Sodium Chloride 0.9% 50 ML IV SCH (20:43)
[2016-12-09] MEDS: Albuterol Nebulizer 2.5mg/3mL HHN SCH ×4 (02:55→14:49)
[2016-12-09] MEDS: Morphine Sulfate 2 mg/mL 1mL Syr IVP PRN ×3 (03:53→15:22)
[2016-12-09] MEDS: metroNIDAZOLE 500mg/NS 100mL 500 MG/100 ML BAG IV SCH ×2 (05:03→12:19)
[2016-12-09 05:59] LABS: % EOSINOPHILS 0.8 % (0.0-5.0); % LYMPHOCYTES 18.6 % (20.0-50.0); % MONOCYTES 7.2 % (2.0-10.0); % NEUTROPHILS 73.4 % (40.0-80.0); HEMATOCRIT 38.9 % (35.0-45.0); HEMOGLOBIN 13.2 gm/dL (11.7-15.5); MEAN CELL VOLUME 89.4 fl (81-100); MEAN CORPUSCULAR HEMOGLOBIN 30.4 pg (27.0-31.0); MEAN PLATELET VOLUME 9.5 fl; NEUTROPHILE ABSOLUTE 8.1 Th/cmm (1.8-8.0); PLATELET COUNT 300 Th/cmm (150-400); RED BLOOD COUNT 4.35 Mil/cmm (3.80-5.10); RED CELL DISTRIBUTION WIDTH 12.2 % (11.5-20.0)
[2016-12-09 06:09] LABS: WHITE BLOOD COUNT 11.1 Th/cmm (4.8-10.8)
[2016-12-09 06:21] LABS: ALB/GLOB RATIO 1.5 (1.0-1.8); ALKALINE PHOSPHATASE 44 U/L (34-104); ANION GAP 9.1 (7.0-16.0); BILIRUBIN,TOTAL 1.1 mg/dL (0.3-1.0); BUN - UREA NITROGEN 6 mg/dL (7-25); BUN/CREATININE RATIO 6.7; CALCIUM SERUM 9.2 mg/dL (8.6-10.3); CARBON DIOXIDE 26.4 mEq/L (21.0-31.0); CHLORIDE 104 mEq/L (98-107); CREATININE - SERUM 0.9 mg/dL (0.6-1.2); GLUCOSE 83 mg/dL (70-105); LIPASE 12 U/L (11-82); POTASSIUM SERUM 3.5 mEq/L (3.5-5.1); SGOT 61 U/L (13-39); SGPT/ALT 107 U/L (7-52); SODIUM SERUM 136 mEq/L (136-145)
[2016-12-09] MEDS: Budesonide 0.5 Mg/2 mL Ud HHN SCH (07:12)
--- NOTE | 2016-12-09 12:18 | Diagnostic Imaging Report ---
Abdominal ultrasound HISTORY: Abnormal liver function tests, pain The liver exhibits a homogeneous parenchyma. No focal lesions. The gallbladder is normal. No calculi are seen. No biliary dilatation. No abnormalities are seen in the region of the pancreas. The kidneys appear normal bilaterally. The spleen is normal in size. No other retroperitoneal or intra-abdominal abnormalities. IMPRESSION: Negative examination
[2016-12-09] MEDS: Sodium Chloride 0.45% 1,000 ML IV SCH (15:14)
[2016-12-09] MEDS ORDERED: Hydrocodone/APAP 10 mg/325 mg Tab PO PRN (15:59)
--- NOTE | 2016-12-09 16:59 | GI Progress Note ---
Subjective - Review of Systems Service Date: 12/09/16 Subjective: Better. Less pain and diarrhea Objective - Results Result Diagrams: 12/09/16 05:05 12/09/16 05:05 Recent Labs: Laboratory Last Values WBC 11.1 Th/cmm (4.8-10.8) H D 12/09/16 05:05 RBC 4.35 Mil/cmm (3.80-5.10) 12/09/16 05:05 Hgb 13.2 gm/dL (11.7-15.5) 12/09/16 05:05 Hct 38.9 % (35.0-45.0) 12/09/16 05:05 MCV 89.4 fl (81-100) 12/09/16 05:05 MCH 30.4 pg (27.0-31.0) 12/09/16 05:05 MCHC Differential 34.0 pg (28.0-36.0) 12/09/16 05:05 RDW 12.2 % (11.5-20.0) 12/09/16 05:05 Plt Count 300 Th/cmm (150-400) 12/09/16 05:05 MPV 9.5 fl 12/09/16 05:05 Neutrophils % 73.4 % (40.0-80.0) 12/09/16 05:05 Lymphocytes % 18.6 % (20.0-50.0) L 12/09/16 05:05 Monocytes % 7.2 % (2.0-10.0) 12/09/16 05:05 Eosinophils % 0.8 % (0.0-5.0) 12/09/16 05:05 Basophils % 0.0 % (0.0-2.0) 12/09/16 05:05 Sodium 136 mEq/L (136-145) 12/09/16 05:05 Potassium 3.5 mEq/L (3.5-5.1) 12/09/16 05:05 Chloride 104 mEq/L (98-107) 12/09/16 05:05 Carbon Dioxide 26.4 mEq/L (21.0-31.0) 12/09/16 05:05 Anion Gap 9.1 (7.0-16.0) 12/09/16 05:05 BUN 6 mg/dL (7-25) L 12/09/16 05:05 Creatinine 0.9 mg/dL (0.6-1.2) 12/09/16 05:05 Est GFR ( Amer) > 60.0 ml/min (>90) 12/09/16 05:05 Est GFR (Non-Af Amer) > 60.0 ml/min 12/09/16 05:05 BUN/Creatinine Ratio 6.7 12/09/16 05:05 Glucose 83 mg/dL (70-105) 12/09/16 05:05 Hemoglobin A1c % 5.1 % (4.0-6.0) 12/06/16 16:22 Calcium 9.2 mg/dL (8.6-10.3) 12/09/16 05:05 Total Bilirubin 1.1 mg/dL (0.3-1.0) H 12/09/16 05:05 AST 61 U/L (13-39) H 12/09/16 05:05 ALT 107 U/L (7-52) H 12/09/16 05:05 Alkaline Phosphatase 44 U/L (34-104) 12/09/16 05:05 Troponin I < 0.01 ng/mL (0.01-0.05) L 12/06/16 16:22 C-Reactive Protein < 0.2 mg/dL (0.0-0.9) 12/07/16 05:25 Total Protein 6.4 gm/dL (6.0-8.3) 12/09/16 05:05 Albumin 3.8 gm/dL (3.7-5.3) 12/09/16 05:05 Globulin 2.6 gm/dL 12/09/16 05:05 Albumin/Globulin Ratio 1.5 (1.0-1.8) 12/09/16 05:05 Amylase 59 U/L (29-103) 12/06/16 16:22 Lipase 12 U/L (11-82) 12/09/16 05:05 TSH 1.76 uIU/ml (0.34-5.60) 12/06/16 16:22 Serum , Qual NEGATIVE (NEGATIVE) 12/06/16 16:22 Urine Source CLEAN C 12/06/16 17:18 Urine Color RED 12/06/16 17:18 Urine Clarity TURBID (CLEAR) H 12/06/16 17:18 Urine pH >=9.0 12/06/16 17:18 Ur Specific [place] 1.015 (1.005-1.030) 12/06/16 17:18 Urine Protein >300 mg/dL (NEGATIVE) H 12/06/16 17:18 Urine Glucose (UA) NEGATIVE mg/dL (NEGATIVE) 12/06/16 17:18 Urine Ketones 15 mg/dL (NEGATIVE) H 12/06/16 17:18 Urine Blood LARGE (NEGATIVE) H 12/06/16 17:18 Urine Nitrate NEGATIVE (NEGATIVE) 12/06/16 17:18 Urine Bilirubin LARGE (NEGATIVE) H 12/06/16 17:18 Urine Urobilinogen 0.2 E.U./dL (0.2 - 1.0) 12/06/16 17:18 Ur Leukocyte Esterase TRACE (NEGATIVE) H 12/06/16 17:18 Urine RBC >100 /hpf (0-5) H 12/06/16 17:18 Urine WBC 2-5 /hpf (0-5) 12/06/16 17:18 Ur Epithelial Cells NONE SEEN /lpf (FEW) 12/06/16 17:18 Urine Bacteria MANY /hpf (NONE SEEN) 12/06/16 17:18 Urine Test NEGATIVE 12/06/16 17:18 Stool Occult Blood POSITIVE (NEGATIVE) 12/08/16 13:00 Stool Leukocyte FEW WBC SEEN 12/07/16 16:00 Urine Opiates Screen NEGATIVE (NEGATIVE) 12/06/16 19:30 Urine Methadone Screen NEGATIVE (NEGATIVE) 12/06/16 19:30 Ur Barbiturates Screen NEGATIVE (NEGATIVE) 12/06/16 19:30 Ur Tricyclics Screen NEGATIVE (NEGATIVE) 12/06/16 19:30 Ur Phencyclidine Scrn NEGATIVE (NEGATIVE) 12/06/16 19:30 Amphetamines Screen NEGATIVE (NEGATIVE) 12/06/16 19:30 U Methamphetamines Scrn NEGATIVE (NEGATIVE) 12/06/16 19:30 U Benzodiazepines Scrn POSITIVE (NEGATIVE) H 12/06/16 19:30 U Cocaine Metab Screen NEGATIVE (NEGATIVE) 12/06/16 19:30 U Cannabinoids Screen NEGATIVE (NEGATIVE) 12/06/16 19:30 - Physical Exam Vitals and I&O: Vital Signs Temp 98.5 F 12/09/16 11:52 Pulse 71 12/09/16 14:49 Resp 17 12/09/16 14:49 BP 104/57 12/09/16 11:52 Pulse Ox 98 12/09/16 14:49 Intake & Output 12/08/16 12/09/16 12/09/16 18:59 06:59 18:59 Intake Total 3343 162 3533 Balance 0466 767 1497 Weight (lbs) 60.373 kg 60.328 kg Intake: Intake, IV Amount 8213 685 1737 Sodium Chloride 0.45% 1, 1000 1000 000 ml @ 70 mls/hr IV . [id number] [facility] Rx#:[id number] metroNIDAZOLE 500mg/NS 100 200 100mL 500 mg In 100 ml @ 100 mls/hr IV Q8HR [facility] Rx #:[id number] Oral 100 200 Other: # Voids 3 3 # Bowel Movements 2 1 Active Medications: Current Medications Acetaminophen/Hydrocodone Bitart ([place] 10 Mg/325 Mg) 1 tab PO Q6H PRN PRN Reason: Pain (Moderate) Stop: 02/07/17 15:58 Albuterol Sulfate (Albuterol 2.5mg/3ml Neb Ud) 2.5 mg HHN Q4H [facility] Stop: 02/06/17 07:44 Last Admin: 12/09/16 14:49 Dose: 2.5 mg Budesonide (Pulmicort) 0.5 mg HHN BIDRT [facility] Stop: 02/05/17 18:59 Last Admin: 12/09/16 07:12 Dose: 0.5 mg Hydromorphone HCl (Dilaudid) 2 mg PO Q4HR PRN PRN Reason: Severe Pain Stop: 02/07/17 15:59 Levofloxacin (Levaquin) 500 mg PO DAILY [facility] Stop: 12/16/16 08:59 Metronidazole (Flagyl) 250 mg PO Q8H [facility] Stop: 12/16/16 16:59 Ondansetron HCl (Zofran) 4 mg IV Q4H PRN PRN Reason: Nausea / Vomiting Stop: 02/05/17 08:13 Last Admin: 12/09/16 03:54 Dose: 4 mg Sucralfate (Carafate) 1 gm PO TID [facility] Stop: 02/05/17 22:32 Last Admin: 12/09/16 13:13 Dose: 1 gm General: Alert, No acute distress HEENT: Atraumatic Neck: Supple Cardiovascular: Regular rate Lungs: Clear to auscultation Abdomen: Bowel sounds, Soft, no Tender Assessment/Plan - Problem List Patient Problems: All Active Problems Abnormal LFTs (Acute) R79.89 Colitis (Acute) K52.9 LOWER ABDOMINAL PAIN WITH BLOODY DIARRHE (Acute) COUGH WITH NAUSEA AND FRONTAL H/A (Acute) CYCLIC VOMITING (Acute) Constipation (Acute) K59.00 - Plan Plan: Cont Abx To be transferred to [facility] Colonoscopy if not improving LFts cont to increase but US normal . Possibly due to infection
== END 2016-12-09 17:35 | disposition left against medical advice (07) | DRG 251 ==
LOC: ER 16:01 → MSI 19:40
PROVIDERS: ADMIT General Practice; ATTEND General Practice
DX: R10.9 Unspecified abdominal pain (principal); F41.9 Anxiety disorder, unspecified; J20.9 Acute bronchitis, unspecified; K52.9 Noninfective gastroenteritis and colitis, unspecified; J42 Unspecified chronic bronchitis; Z53.21 Procedure and treatment not carried out due to patient leaving prior to being seen by health care provider; Z91.018 Allergy to other foods; Z82.49 Family history of ischemic heart disease and other diseases of the circulatory system; Z79.899 Other long term (current) drug therapy; Z80.9 Family history of malignant neoplasm, unspecified; Z83.3 Family history of diabetes mellitus
CPT/HCPCS: 36415-UA; 76700-TC; 80053-TC; 80307; 81001-TC; 81025-TC; 82150-TC; 82270-TC; 83036-90; 83690-TC; 84443-TC; 84484-TC; 84703-TC; 85025-TC; 86141-TC; 87046-90; 87230-TC; 89055-TC; 90799; 94640; 94760; 96375; C9113; J0696; J2060; J2270; J2405; J2930; J3480; J7030; J7613; Q9967